=== PATIENT | female | born 1955 | race Caucasian/White ===

== ENCOUNTER → 2022-04-04 | Outpatient (CLI) | payer OTHER ==
[2022-04-05 15:10] LABS: HPV 16 Negative (Negative); HPV 18 Negative (Negative); HPV OTHER HR TYPES Negative (Negative)
== END | disposition home or self-care (01) ==
LOC: LAB 12:08 → RAD SHORT 12:08 → LAB SHORT 12:08
PROVIDERS: Obstetrics & Gynecology
DX: Z09 Encounter for follow-up examination after completed treatment for conditions other than malignant neoplasm (principal); Z87.42 Personal history of other diseases of the female genital tract
CPT/HCPCS: 87624; G0123

== ENCOUNTER 2022-12-20 13:38 | Day surgery (SDC) | payer MEDICARE ==
[~2022-12-20] VITALS: Ht 147.3 cm; Wt 72.1 kg
[2022-12-20] MEDS ORDERED: ATOR20 (14:29)
[2022-12-20] MEDS ORDERED: AZELASTINE137 MCG/01 (14:29)
[2022-12-20] MEDS ORDERED: Prozac20 MG (14:30)
[2022-12-20] MEDS ORDERED: ERGO50000 (14:30)
[2022-12-20] MEDS ORDERED: NAPR500ERA (14:30)
[2022-12-20] MEDS ORDERED: VITAMIN B-122000 MC1 (14:30)
[2022-12-20] MEDS ORDERED: OMEP20ER (14:31)
[2022-12-20 16:07] VITALS: BP 94/66
== END 2022-12-20 16:08 | disposition home or self-care (01) ==
LOC: ORSCSDS 13:38
PROVIDERS: Internal Medicine Gastroenterology
PROC: 0DBN8ZX Excision of Sigmoid Colon, Via Natural or Artificial Opening Endoscopic, Diagnostic (ICD-10-PCS; principal; 2022-12-20 15:00)
PROC: 0DBH8ZX Excision of Cecum, Via Natural or Artificial Opening Endoscopic, Diagnostic (ICD-10-PCS; principal; 2022-12-20 15:00)
DX: Z12.11 Encounter for screening for malignant neoplasm of colon (principal); D12.0 Benign neoplasm of cecum; D12.5 Benign neoplasm of sigmoid colon; K57.30 Diverticulosis of large intestine without perforation or abscess without bleeding; K64.9 Unspecified hemorrhoids; E78.5 Hyperlipidemia, unspecified; G47.33 Obstructive sleep apnea (adult) (pediatric); Z79.899 Other long term (current) drug therapy; E66.9 Obesity, unspecified; Z68.33 Body mass index [BMI] 33.0-33.9, adult
CPT/HCPCS: 88305; J0461; J2001; J2405; J2704; J7120; Q9968

== ENCOUNTER → 2022-12-22 | Outpatient (CLI) | payer MEDICARE ==
[~2022-12-22] MED LIST: ATOR20; AZELASTINE137 MCG/01; ERGO50000; NAPR500ERA; OMEP20ER; Prozac20 MG; VITAMIN B-122000 MC1
== END ==
LOC: LAB SHORT 17:50 → LAB 17:50
DX: R30.0 Dysuria (principal)
CPT/HCPCS: 87086